=== PATIENT | female | born 1980 ===

== ENCOUNTER 2017-04-21 11:02 | Emergency (ER) | payer SELFPAY ==
[2017-04-21 11:07] VITALS: BMI 32.4
[2017-04-21 11:08] VITALS: BP 113/62; PULSE 74; RESP 17; TEMP 98.6; O2SAT 98
[2017-04-21] MEDS: Lactated Ringer's 1,000 ML IV SCH ×2 (12:27→14:44)
[2017-04-21 12:32] LABS: HEMOGLOBIN 12.5 g/dL (12.0-16.0); MEAN CELL VOLUME 87.1 fl (81.0-99.0); MEAN CORPUSCULAR HEMOGLOBIN 29.4 pg (27.0-31.0); MEAN CORPUSCULAR HGB CONC 33.8 g/dL (33.0-37.0); RBC 4.25 Mil/uL (3.80-5.20); RED CELL DISTRIBUTION WIDTH 13.5 % (11.5-14.5); WHITE BLOOD COUNT 11.9 K/uL (4.8-10.8)
[2017-04-21 12:43] LABS: ALB/GLOB RATIO 1.1 (1.0-2.1); ALBUMIN 3.9 g/dL (3.5-5.0); ALT/SGPT 45 U/L (9-52); AST/SGOT 28 U/L (14-36); BLOOD UREA NITROGEN 7 mg/dl (7-17); CALCIUM 9.4 mg/dL (8.4-10.2); GFR AFRICAN-AMERICAN > 60; GFR NON-AFRICAN AMERICAN > 60
--- NOTE | 2017-04-21 14:27 | US ---
PROCEDURE: Limited obstetrical ultrasound HISTORY: vaginal bleeding in COMPARISON: Not available TECHNIQUE: Transabdominal FINDINGS: Single live intrauterine gestation in breech presentation. The heart rate is 147 beats per minute. Grossly normal amniotic fluid volume. Posterior placenta. No evidence of placenta previa. Cervix long and closed and measures 4.6 cm. biometry yields a gestational age of 17 weeks 5 days. The HERIBERTO by ultrasound is 09/24/2017. Please note that the head size is slightly smaller than expected for abdominal circumference and femoral length. Followup advised with high risk Maternal Medicine consultation. IMPRESSION: Single live intrauterine gestation of approximately 17 weeks 5 days. Head size slightly smaller than expected for patient abdominal circumference and femur length. Followup advised as above. Breech presentation. Normal amniotic fluid volume. No previa. Cervix closed.
--- NOTE | 2017-04-21 15:36 | ED PDOC ---
HPI: Female Pain Time Seen by Provider: 04/21/17 11:28 Chief Complaint (Nursing): Female Genitourinary Chief Complaint (Provider): Vaginal bleeding in History Per: Patient History/Exam Limitations: no limitations Onset/Duration Of Symptoms: Hrs (2) Current Symptoms Are (Timing): Still Present Severity: Mild Additional Complaint(s): 36 yo female at 16 weeks gestation presents with vaginal bleeding. PT states she saw some blood in the toilet and some when she wiped. PT states it is not so much that she has to wear a pad. PT denies abdominal pain;. No complications in current . No complications in previous. Past Medical History Reviewed: Historical Data, Nursing Documentation, Vital Signs Vital Signs: Last Vital Signs Temp 98.6 F 04/21/17 11:07 Pulse 74 04/21/17 11:07 Resp 17 04/21/17 11:07 BP 113/62 04/21/17 11:07 Pulse Ox 98 04/21/17 11:07 - Medical History PMH: No Chronic Diseases - Surgical History Surgical History: No Surg Hx - Family History Family History: States: No Known Family Hx - Allergies Allergies/Adverse Reactions: Allergies Allergy/AdvReac Type Severity Reaction Status Date / Time No Known Allergies Allergy Verified 04/21/17 11:51 Review of Systems ROS Statement: Except As Marked, All Systems Reviewed And Found Negative Constitutional: Negative for: Fever, Chills Genitourinary Female: Positive for: Vaginal Bleeding Physical Exam - Reviewed Nursing Documentation Reviewed: Yes Vital Signs Reviewed: Yes - Physical Exam Appears: Positive for: Well, Non-toxic, No Acute Distress Head Exam: Positive for: ATRAUMATIC, NORMAL INSPECTION, NORMOCEPHALIC Skin: Positive for: Normal Color, Warm, DRY Eye Exam: Positive for: Normal appearance ENT: Positive for: Normal ENT Inspection Neck: Positive for: Normal, Painless ROM Cardiovascular/Chest: Positive for: Regular Rate, Rhythm Respiratory: Positive for: Normal Breath Sounds. Negative for: Accessory Muscle Use, Respiratory Distress Gastrointestinal/Abdominal: Positive for: Normal Exam, Bowel Sounds, Soft. Negative for: Tenderness Back: Positive for: Normal Inspection Extremity: Positive for: Normal ROM Neurologic/Psych: Positive for: Alert, Oriented - Laboratory Results Result Diagrams: 04/21/17 12:28 04/21/17 12:28 - ECG O2 Sat by Pulse Oximetry: 98 Medical Decision Making Medical Decision Making: (+) FTH Os closed Disposition - Clinical Impression Clinical Impression: Vaginal bleeding in - Patient ED Disposition Is Patient to be Admitted: No Counseled Patient/Family Regarding: Diagnosis, Need For Followup - Disposition Disposition: Routine/Home Disposition Time: 15:35 Condition: GOOD Additional Instructions: Stay hydrated. Rest. Do not lift anything over 5 pounds. Please follow-up with OB. Instructions: (ED) Print Language: MALAY
== END 2017-04-21 16:28 | disposition home or self-care (01) ==
LOC: H.ER 11:02
DX: O20.9 Hemorrhage in early pregnancy, unspecified (principal); O32.1XX0 Maternal care for breech presentation, not applicable or unspecified; Z36.9 Encounter for antenatal screening, unspecified; Z3A.16 16 weeks gestation of pregnancy
CPT/HCPCS: 76815; 80053; 81025; 84702; 85027; 86850; 86900; 96360; 96361; 99284; J7120

== ENCOUNTER 2017-09-22 18:17 | Emergency (ER) | payer MEDICAID, SELFPAY ==
[2017-09-23 00:04] VITALS: BP 101/64; PULSE 70; RESP 18
--- NOTE | 2017-09-23 08:47 | OBHP ---
Datetime: 09/22/2017 19:16 IP Adm Impression: Term, intrauterine ; No Active Labor; Intact Membranes IP Admit Plan: Observation/Evaluation Admit Comment, IP Provider: 37 yo F with IUP at 39.3 weeks presents to [facility] c/o ctx e/ 10 mi n since yesterday and bloody show. patient states ctx has been increasing in frequency and intensity. No lof, reports good fM. PNC: [facility]. OBH: NVD x2 FT, GBS-. [employer]TE[employer]CE: denies std PMH: denies PSH: denies FMH: none. NKDA SH: denies etoh, tobaco, drugs. VSS PE: see PE tab A/P: 37 yo F with IUP at 39.3 weeks with ctx, no active labor -observation -/maternal monitoring -reeval. Case disscused with Dr Bright. Franny PGY1. Pelvic Type - PN: Adequate Extremities - PN: Normal Abdomen - PN: Normal Back - PN: Not Done Breast - PN: Not Done Lungs - PN: Normal Heart - PN: Normal Thyroid - PN: Not Done Neurologic - PN: Normal HEENT - PN: Normal General - PN: Normal FHR - Baseline A Provider: 140 Membranes, Provider: Bulging Contraction Comments Provider: irregular Comments, ACOG Physical Exam: VE: 50/-3 [place]: irregular e/6-7 min. EGA AdmitDate IP: 39.3 Vital Signs Provider: Reviewed; Within Normal Limits IP Chief Complaint: Uterine contractions NICHD Variability Prov Fetus A: Moderate 6-25bpm NICHD Accel Fetus A IP Provider: 15X15 FHR Category Provider Fetus A: Category I NICHD Decel Fetus A IP Provider: None Dilatation, Provider: 1 Effacement, Provider: 50 Station, Provider: -3 Genitourinary Exam: Normal DTRs - PN: Not Done
== END 2017-09-22 19:50 | disposition home or self-care (01) ==
LOC: H.EROB2 18:17
DX: O47.1 False labor at or after 37 completed weeks of gestation (principal); Z3A.39 39 weeks gestation of pregnancy

== ENCOUNTER 2017-09-23 14:45 | Inpatient (IN) | payer MEDICAID, SELFPAY ==
[2017-09-23] MEDS ORDERED: Lactated Ringer's 1,000 ML IV SCH (16:15)
[2017-09-23 17:08] LABS: BASO # 0.1 K/uL (0.0-0.2); BASO % 0.6 % (0.0-2.0); EOS # 0.1 K/uL (0.0-0.7); EOS % 0.7 % (0.0-4.0); HEMOGLOBIN 11.4 g/dL (12.0-16.0); LYMPH # 2.3 K/uL (1.0-4.3); LYMPH % 23.6 % (20.0-40.0); MEAN CORPUSCULAR HEMOGLOBIN 27.1 pg (27.0-31.0); MEAN CORPUSCULAR HGB CONC 33.2 g/dL (33.0-37.0); MEAN PLATELET VOLUME 11.9 fl (7.2-11.7); MONO # 0.5 K/uL (0.0-0.8); MONO % 5.2 % (0.0-10.0); NEUT # 6.8 K/uL (1.8-7.0); NEUT % 69.9 % (50.0-75.0); NRBC % 0.1 % (0.0-0.0); RBC 4.21 Mil/uL (3.80-5.20); RED CELL DISTRIBUTION WIDTH 16.6 % (11.5-14.5); WHITE BLOOD COUNT 9.7 K/uL (4.8-10.8)
[2017-09-23 17:15] LABS: MEAN CELL VOLUME 81.6 fl (81.0-99.0)
[2017-09-23] MEDS ORDERED: Oxytocin 30 units/LR 500ML 30 UNITS/500 ML BAG IV ONE (18:50)
[2017-09-23] MEDS ORDERED: Lidocaine 1% Inj (20ml) ONE (21:59)
[2017-09-23] MEDS ORDERED: Benzocaine/Menthol SPRAY TOP PRN (22:21)
[2017-09-23] MEDS ORDERED: Oxycodone/Acetaminophen 5/325 mg Tab PO PRN (22:21)
[2017-09-23] MEDS ORDERED: Oxytocin 30 units/LR 500ML 30 U/500 ML BAG IV ONE (22:29)
--- NOTE | 2017-09-23 22:36 | OBDS ---
MATERNAL INFORMATION Provider Comments: of live male over intact perineum followed by shoulders and rest of i nfant in RT, nuchal cord x 1, 6lbs 9 oz, 12/04, terminal meconium, cord clampd and cut, cord blood obta ined, placed in warmer, placenta deliverd spontaneously, fundus firm, quantified blood loss 50 mL, 2nd degree laceration repaired with 2-0 vicryl rapide, pt otherwise tolerated procedure well LABOR SUMMARY EDC: 09/26/2017 00:00 LABOR INFORMATION Group B Beta Strep: Negative
[2017-09-24 07:49] LABS: BASO % 0.3 % (0.0-2.0); EOS % 0.2 % (0.0-4.0); LYMPH # 2.2 K/uL (1.0-4.3); LYMPH % 15.5 % (20.0-40.0); MEAN CELL VOLUME 82.4 fl (81.0-99.0); MEAN CORPUSCULAR HEMOGLOBIN 26.4 pg (27.0-31.0); MEAN PLATELET VOLUME 11.1 fl (7.2-11.7); MONO # 0.8 K/uL (0.0-0.8); MONO % 5.4 % (0.0-10.0); NEUT # 11.2 K/uL (1.8-7.0); NEUT % 78.6 % (50.0-75.0); RBC 3.81 Mil/uL (3.80-5.20); WHITE BLOOD COUNT 14.3 K/uL (4.8-10.8)
--- NOTE | 2017-09-24 07:55 | OBPPN ---
Datetime: 09/24/2017 06:06 PP Pain Prov: Within normal limits PP Nausea Prov: Denies PP Flatus Prov: Yes PP BM Prov: No PP Impression Prov: Normal progression PP Plan Prov: Continue present management PP Progress Note Prov: Patient seen and examined this morning at bedside. Mild abdominal pain well c ontrolled with medication. Voiding w/o any difficulties, tolerating PO intake and reports good breast feeding progression. No BM but passing gas per rectum. Lochia like menses. Denies chest pain, dyspnea , nausea, vomiting, and calf pain. VSS, afebrile Gen: NAD Resp: cta b/l CV: normal S1S2, RRR Abd: soft, +BS, nontender, firm fundus below umbilicus. Ext: no edema, no calf tenderness Neuro/psych: AAOx3, no gross deficits, preserved mood and affect A/P: 37 yo , s/p NVD doing well on PPD 1. -Normal progression -c/w pain management -Encourage ambulation and -Pp H/H pending -Anticipated discharge 09/25/17 -Patient is aware and all the questions were answered YBecerra PGY-1 OB Hospitalist Addendum: Pt seen and examined by me. Agree w/ above. PPD 1 s/p , doing well, breast feeding. Continue current care. (ES) IP PP Procedures: None Vital Signs Provider PP: Reviewed; Within Normal Limits
[2017-09-24] MEDS ORDERED: Multivitamin With Minerals Tab PO SCH (09:00)
--- NOTE | 2017-09-25 11:12 | OBDCSUM ---
Datetime: 09/25/2017 08:05 Discharged to, Provider: Home Follow up at, Provider: your doctor Disch Instr Activity: May be up to bathroom; May be up for meals; May Shower Disch Instr Diet: Regular Discharge Instructions, Provider: Routine instructions given Discharge Diagnosis, Provider: Term Delivered Discharge Time: 09/25/2017 11:10 Follow up in weeks, Provider: 4-6 weeks Disch Referrals: None Contraception discussed, Prov: Yes Disch Activity Restrictions: No exercising; No lifting; Minimize stair-climbing; No sexual activity; Nothing in vagina - [place], tampons, douche Discharge Comment, Provider: Discharge to home today Take vitamin daily take ibuprofen 600 mg 1 tab every 6 hours as needed for pain Encourage . Ambulation with caution,nothing per vaginal, no heavy lifting, if excessive bleeding or fever w/o relief from pain medications go to ED. Follow up at your clinic in 4-6 weeks for visit. Contraception after Delivery: Foam/Condoms Datetime: 09/22/2017 19:48 Disch Instr Activity: May be up to bathroom; May be up for meals; May Shower Discharge Instructions, Provider: Routine instructions given Discharge Diagnosis, Provider: Term Delivered Contraception discussed, Prov: Yes Disch Activity Restrictions: No exercising; No lifting; No sexual activity; Nothing in vagina - Inte rcourse, tampons, douche Contraception after Delivery: Foam/Condoms
--- NOTE | 2017-09-25 11:12 | OBPPN ---
Datetime: 09/25/2017 08:01 PP Pain Prov: Within normal limits PP Nausea Prov: Denies PP Flatus Prov: Yes PP BM Prov: Yes PP Heart Prov: Normal PP Lungs Prov: Normal PP Abdomen/Uterus Prov: Normal PP Lochia Prov: Normal PP Vulva/Perineum Prov: Normal PP CVA Tenderness Prov: Normal PP Extremities Prov: Normal PP Progress Prov: Normal PP Impression Prov: Normal progression PP Plan Prov: Discharge PP Progress Note Prov: PPD 2 [place]: [place] [id number] 37 y/o female now on PPD 2 seen and examined at bedside this morning. No overnight events. Reports pain is controlled with pain medications. Pt reports passing gas per rectum and + BM yesterd ay. Voiding freely w/o blood noted. Ambulating well w/o dizziness. Lochia is similar to menses volume . Pt is the baby w/o difficulty. Denies nausea, vomiting, fever, chills, chest pain or calf pain. Physical Exam: General: A_O, resting comfortably in bed, NAD HEENT: oral mucosa moist. Lungs: CTA B/L, no wheezing, rhonchi or rales CVS: RRR, S1, S2 ABD: ND, +BS, firm fundus @ umbilical level. Soft, appropriate TTP. EXT: no edema, negative Abhishek's sign, Neuro/psych: AAOX3. Assessment: 37 y/o female now doing well on PPD 2 Plan: Discharge to home today PNV 1 PO qdaily Ibuprofen 600 mg 1 tab po prn q6 if moderate/severe pain Encourage . Ambulation with caution,nothing per vaginal, no heavy lifting, if excessive bleeding or fever w/o relief from pain medication go to ED. Follow up with your doctor in 6 weeks for visit. [place], PGY-[address] Hernandez: I have evaluated the patient independently and I agree with the above Vital Signs Provider PP: Reviewed; Within Normal Limits
--- NOTE | 2017-09-25 14:08 | OBHP ---
Datetime: 09/23/2017 17:58 IP Adm Impression: Term, intrauterine IP Admit Plan: Admit to unit; Initiate labor protocol Admit Comment, IP Provider: Patient is a @ 39.3 wks who presented for rule out labor. Patien t initially reported vaginal spotting and contractions, +FM, no leaking, Patient was examined, found to be be 1cm dilated, same as day prior. Patient was observed on the monitor for about an hour. FHR = 145 mod anamaria, +accels, no decels. Before being taken off monitor was noted to have a prolonged decele ration to 65 BPM for about 2.5 mins with spontaneous return to baseline. BPP was ordered. Within abou t another 1.5 hour pt was observed again to have a spontaneous prolonged deceleration to 60 bpm. Trac ing was a Cat II at this point, decision was made to induce patient. VE=/-3 [id number] mod anamaria, +accels, periodic prolonged deceleration TOCO = occasional contractions A/P 1. Patient for induction for Cat II tracing. Will admit patient, start IVF, CBC, Type and Screen 2. CEFM and TOCO 3. Will start Pitocin for augmentation 4. Patient does not want pain management Pelvic Type - PN: Adequate Extremities - PN: Normal Abdomen - PN: Normal Back - PN: Normal Breast - PN: Normal Lungs - PN: Normal Heart - PN: Normal Thyroid - PN: Normal Neurologic - PN: Normal HEENT - PN: Normal General - PN: Normal FHR - Baseline A Provider: 145 Contraction Comments Provider: occasional Vital Signs Provider: Reviewed; Within Normal Limits IP Indication for Induction Oth: Cat- II tracing NICHD Variability Prov Fetus A: Moderate 6-25bpm NICHD Accel Fetus A IP Provider: 15X15 FHR Category Provider Fetus A: Category II NICHD Decel Fetus A IP Provider: Prolonged Dilatation, Provider: 1 (Annotations: Data stored by CPN on behalf of user) Effacement, Provider: 50 Station, Provider: -3 Genitourinary Exam: Normal DTRs - PN: Normal Datetime: 09/22/2017 19:16 EGA AdmitDate IP: 39.3
[2017-09-25 18:54] VITALS: BP 109/59; PULSE 73; RESP 19; TEMP 98.1; O2SAT 100
== END 2017-09-25 12:31 | disposition home or self-care (01) | DRG 373 ==
LOC: H.EROB2 14:45 → H.L&D 17:40 → H.OB/GYN 09-24 00:30
PROVIDERS: ADMIT Obstetrics & Gynecology; ATTEND Obstetrics & Gynecology
PROC: 10E0XZZ Delivery of Products of Conception, External Approach (ICD-10-PCS; principal; 2017-09-23)
PROC: 4A1HXCZ Monitoring of Products of Conception, Cardiac Rate, External Approach (ICD-10-PCS; 2017-09-23)
PROC: 0KQM0ZZ Repair Perineum Muscle, Open Approach (ICD-10-PCS; 2017-09-23)
DX: O76 Abnormality in fetal heart rate and rhythm complicating labor and delivery (principal); O69.81X0 Labor and delivery complicated by cord around neck, without compression, not applicable or unspecified; O77.0 Labor and delivery complicated by meconium in amniotic fluid; O70.1 Second degree perineal laceration during delivery; Z3A.39 39 weeks gestation of pregnancy; Z37.0 Single live birth